=== PATIENT | female | born 1975 | race Caucasian/White ===

== ENCOUNTER 2020-06-17 11:33 | Outpatient (REF) | payer SELFPAY | END 2020-06-17 11:34 | disposition home or self-care (01) | LOC: HO.LAB 11:33 | PROVIDERS: Visit Provider Internal Medicine | DX: Z20.828 Contact with and (suspected) exposure to other viral communicable diseases (principal) | CPT/HCPCS: U0003 ==

== ENCOUNTER 2020-09-01 11:35 | Outpatient (REF) | payer OTHER, SELFPAY | END 2020-09-01 11:36 | disposition home or self-care (01) | LOC: HO.LAB 11:35 | PROVIDERS: Visit Provider Internal Medicine | DX: Z20.822 Contact with and (suspected) exposure to COVID-19 (principal) | CPT/HCPCS: 36415; C9803; U0003; U0005 ==